=== PATIENT | male | born 1990 | race Caucasian/White ===

== ENCOUNTER 2021-06-15 10:28 | Day surgery (SDC) | payer OTHER, SELFPAY ==
[~2021-06-15] VITALS: Ht 170.2 cm; Wt 93.0 kg
[2021-06-15] MEDS ORDERED: BUPIVACAINE-MPF/EPI 0.25% 30 ML VIAL INJ ONE ×2 (10:41→13:17)
[2021-06-15] MEDS ORDERED: LIDOCAINE 1% 500 MG/50 ML VIAL ONE (10:41)
[2021-06-15] MEDS ORDERED: HYDROGEN PEROXIDE 3% 240 ML BTL TP ONE (10:41)
[2021-06-15] MEDS ORDERED: BUPIVACAINE-MPF 0.25% 30 ML VIAL INJ ONE (11:03)
[2021-06-15] MEDS ORDERED: MIDAZOLAM 2 MG/2 ML VIAL ONE (13:06)
[2021-06-15] MEDS ORDERED: fentaNYL citrate 0.05 MG/ML VIAL ONE (13:07)
[2021-06-15] MEDS ORDERED: SEVOFLURANE 250 ML BTL INH ONE (13:15)
[2021-06-15] MEDS ORDERED: MEPERIDINE 50 MG/ML SYR ONE (13:39)
[2021-06-15] MEDS ORDERED: ONDANSETRON 4 MG/2 ML VIAL ONE (13:45)
[2021-06-15] MEDS ORDERED: PROPOFOL 200 MG/20 ML VIAL IV ONE (13:45)
[2021-06-15] MEDS ORDERED: DEXAMETHASONE 4 MG/ML VIAL ONE (13:46)
[2021-06-15] MEDS ORDERED: MEPERIDINE 25 MG/ML SYR IVP PRN (13:55)
[2021-06-15] MEDS ORDERED: ONDANSETRON 4 MG/2 ML VIAL IVP PRN (13:55)
[2021-06-15] MEDS ORDERED: diphenhydrAMINE 50 MG/ML VIAL IVP PRN (13:55)
[2021-06-15] MEDS ORDERED: LACTATED RINGERS 1,000 ML IV SCH (13:55)
[2021-06-15] MEDS ORDERED: HYDROmorphone 1 MG/ML AMP IVP PRN (13:55)
== END 2021-06-15 15:50 | disposition home or self-care (01) ==
LOC: MDS 10:28 → MMU 10:33 → MDS 15:50
PROVIDERS: ATTEND Surgery
DX: K60.1 Chronic anal fissure (principal); Z79.899 Other long term (current) drug therapy
CPT/HCPCS: 46200; 46922; 71045; 87426; J1100; J2001; J2175; J2250; J2405; J2704; J3010; J3490; J7120

== ENCOUNTER 2021-11-10 06:32 | Day surgery (SDC) | payer OTHER ==
[~2021-11-10] VITALS: Ht 167.6 cm; Wt 95.3 kg
[2021-11-10] MEDS ORDERED: diphenhydrAMINE 50 MG/ML VIAL ONE (07:38)
[2021-11-10] MEDS ORDERED: fentaNYL citrate 0.05 MG/ML VIAL ONE (07:38)
[2021-11-10] MEDS ORDERED: MIDAZOLAM 5 MG/5 ML VIAL ONE (07:38)
[2021-11-10] MEDS: MIDAZOLAM 2 MG/2 ML VIAL IVP ONE (07:40)
[2021-11-10] MEDS: fentaNYL citrate 0.05 MG/ML VIAL IVP ONE (07:41)
[2021-11-10] MEDS: diphenhydrAMINE 50 MG/ML VIAL IVP ONE (07:43)
[2021-11-10] MEDS: LIDOCAINE 2% 100 MG/5 ML UJET TP ONE (07:45)
== END 2021-11-10 09:50 | disposition home or self-care (01) ==
LOC: MOR 06:32 → MMU 06:33 → MOR 09:50
PROVIDERS: ATTEND Internal Medicine Gastroenterology
DX: K62.5 Hemorrhage of anus and rectum (principal); K59.00 Constipation, unspecified; K60.2 Anal fissure, unspecified; K64.8 Other hemorrhoids; Z79.899 Other long term (current) drug therapy
CPT/HCPCS: 45378; J1200; J2250; J3010